=== PATIENT | female | born 1995 | race Caucasian/White ===

== ENCOUNTER 2017-03-13 19:18 | Emergency (ER) | payer BC ==
[2017-03-13] MEDS ORDERED: Azithromycin 250 MG Tab PO ONE (20:52)
[2017-03-13] MEDS ORDERED: Codeine/Promethazine 10-6.25 MG/5 ML Syrup 5 ML UD Cup PO ONE (20:53)
[2017-03-13 20:55] VITALS: BP 131/96
--- NOTE | 2017-03-13 20:55 | EDM.PDOC ---
ED HPI GENERAL MEDICAL PROBLEM - General Chief Complaint: ENT Problem Stated Complaint: COUGHING UP GREEN PHLEGM, THROAT HAS WHITE SPOTS, Time Seen by Provider: 03/13/17 20:50 Source of Information: Reports: Patient History Limitations: Reports: No Limitations - History of Present Illness INITIAL COMMENTS - FREE TEXT/NARRATIVE: been sick since Thursday got worse today. Throat Pain Score (Numeric/FACES): 7 - Related Data Allergies Allergy/AdvReac Type Severity Reaction Status Date / Time amoxicillin [Amoxicillin] Allergy Rash Verified 03/11/14 17:37 cephalexin monohydrate Allergy Vomiting Verified 03/11/14 17:37 [From Keflex] ibuprofen [From Motrin] Allergy Nausea and Verified 03/13/17 20:08 Vomiting Penicillins Allergy Rash Verified 03/11/14 17:37 Home Meds: Home Meds Albuterol [Proair HFA] 2 puff INH Q4HR PRN 03/11/14 [History] Desogestrel-Ethinyl Estradiol [Juleber 28 Day Tablet] 03/13/17 [History] Nasal [place] Otc 03/13/17 [History] Past Medical History Cardiovascular History: Reports: None Respiratory History: Reports: Asthma Gastrointestinal History: Reports: None Genitourinary History: Reports: None 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 Musculoskeletal History: Reports: None Neurological History: Reports: None Psychiatric History: Reports: None Endocrine/Metabolic History: Reports: None Hematologic History: Reports: None Immunologic History: Reports: None Oncologic (Cancer) History: Reports: None Dermatologic History: Reports: None - Infectious Disease History Infectious Disease History: Reports: None - Past Surgical History Head Surgeries/Procedures: Reports: None HEENT Surgical History: Reports: None Cardiovascular Surgical History: Reports: None GI Surgical History: Reports: None Female Surgical History: Reports: None Musculoskeletal Surgical History: Reports: None Social & Family History - Tobacco Use Smoking Status *Q: Never Smoker Second Hand Smoke Exposure: No - Alcohol Use Days Per Week of Alcohol Use: 0 - Recreational Drug Use Recreational Drug Use: No ED ROS ENT - Review of Systems Review Of Systems: ROS reveals no pertinent complaints other than HPI. ED EXAM, ENT - Physical Exam Exam: See Below Exam Limited By: No Limitations General Appearance: Alert, WD/WN, Mild Distress, Other (cough spasm) Ears: Hearing Grossly Normal, TM Dullness Nose: Nasal Swelling Mouth/Throat: Pharyngeal Erythema, Tonsillar Erythema, Tonsillar Exudates, Tonsillar Swelling Head: Atraumatic Neck: Non-Tender, Full Range of Motion, Lymphadenopathy (L), Lymphadenopathy (R) Respiratory/Chest: No Respiratory Distress, No Accessory Muscle Use, Rhonchi. No: Decreased Breath Sounds Cardiovascular: Regular Rate, Rhythm GI/Abdominal: Soft, Non-Tender Neurological: Alert, Oriented, Normal Cognition, Normal Gait, No Motor/Sensory Deficits Psychiatric: Normal Affect, Normal Mood Skin: Warm, Dry, Normal Color Lymphatic: No Adenopathy Course - Orders/Labs/Meds Orders: Active Orders 24 hr Category Date Time Status CULTURE STREP A CONFIRMATION [RM] Stat Lab 03/13/17 20:01 Results STREP SCRN A RAPID W CULT CONF [] Stat Lab 03/13/17 20:01 Results - Re-Assessments/Exams Free Text/Narrative Re-Assessment/Exam: 03/13/17 20:52 results discussed with pt. Departure - Departure Time of Disposition: 20:52 Disposition: Home, Self-Care 01 Condition: Good Clinical Impression: Tonsillitis, Bronchitis Sinusitis Qualifiers: Sinusitis location: frontal Chronicity: acute Recurrence: recurrent Qualified Code(s): J01.11 - Acute recurrent frontal sinusitis - Discharge Information Instructions: Sinusitis, Adult, [id number] Additional Instructions: 1) rest as much as possible 2) don't sleep flat at night 3) drink lots of liquids 4) follow up at clinic or recheck as needed rx given; z-veda medrol dospak phenergan codeine syrup qid prn x 4oz - My Orders Last 24 Hours: My Active Orders 03/13/17 20:01 CULTURE STREP A CONFIRMATION [RM] Stat STREP SCRN A RAPID W CULT CONF [] Stat - Assessment/Plan Last 24 Hours: My Active Orders 03/13/17 20:01 CULTURE STREP A CONFIRMATION [RM] Stat STREP SCRN A RAPID W CULT CONF [] Stat
== END 2017-03-13 21:03 | disposition home or self-care (01) ==
LOC: DL.ED 19:18
DX: J03.90 Acute tonsillitis, unspecified (principal); J40 Bronchitis, not specified as acute or chronic; J01.11 Acute recurrent frontal sinusitis; Z88.1 Allergy status to other antibiotic agents; Z88.0 Allergy status to penicillin
CPT/HCPCS: 87081; 87430; 99282; A9270

== ENCOUNTER 2020-02-19 02:49 | Emergency (ER) | payer BC ==
[2020-02-19 02:56] VITALS: BP 140/88; PULSE 100
[2020-02-19] MEDS ORDERED: Promethazine 25 MG/ML SDV IM ONE (03:11)
[2020-02-19] MEDS ORDERED: Butorphanol 2 MG/ML SDV IM ONE (03:11)
--- NOTE | 2020-02-19 03:16 | EDM.PDOC ---
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 present episode since yesterday and did have neck adjustment but now not working. been nauseous also. 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 Right Temporal Headache Pain Score (Numeric/FACES): 7 - Related Data Allergies Allergy/AdvReac Type Severity Reaction Status Date / Time amoxicillin [Amoxicillin] Allergy Rash Verified 02/19/20 02:52 doxycycline Allergy Swollen Verified 02/19/20 03:00 Tongue ibuprofen [From Motrin] Allergy Nausea and Verified 02/19/20 02:52 Vomiting Penicillins Allergy Rash Verified 02/19/20 02:52 Home Meds: Home Meds Albuterol [Proair HFA] 2 puff INH Q4HR PRN 03/11/14 [History] desogestreL-ethinyl estradioL [Juleber 28 Day Tablet] 03/13/17 [History] Past Medical History HEENT History: Reports: None Cardiovascular History: Reports: None Respiratory History: Reports: Asthma Gastrointestinal History: Reports: None Genitourinary History: Reports: None 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 Musculoskeletal History: Reports: None Neurological History: Reports: None Psychiatric History: Reports: None Endocrine/Metabolic History: Reports: None Hematologic History: Reports: None Immunologic History: Reports: None Oncologic (Cancer) History: Reports: None Dermatologic History: Reports: None - Infectious Disease History Infectious Disease History: Reports: None - Past Surgical History Head Surgeries/Procedures: Reports: None HEENT Surgical History: Reports: None Cardiovascular Surgical History: Reports: None GI Surgical History: Reports: None Female Surgical History: Reports: None Musculoskeletal Surgical History: Reports: None Social & Family History - Family History Family Medical History: Noncontributory - Caffeine Use Caffeine Use: Reports: Soda ED ROS GENERAL - Review of Systems Review Of Systems: Comprehensive ROS is negative, except as noted in HPI. - Physical Exam Exam: See Below Exam Limited By: No Limitations General Appearance: Alert, WD/WN, Mild Distress, Moderate Distress, Other (headache) Eye Exam: Bilateral Eye: PERRL (pupils ER @ 5mm) Ears: Hearing Grossly Normal Throat/Mouth: Normal Voice, No Airway Compromise Head Exam: Atraumatic Neck: Non-Tender, Full Range of Motion Respiratory/Chest: No Respiratory Distress Cardiovascular: Regular Rate, Rhythm GI/Abdominal: Soft, Non-Tender (Female) Exam: Deferred Rectal (Female) Exam: Deferred Neuro Exam (Abbreviated): Alert, Oriented, Normal Cognition, Normal Gait, No Motor/Sensory Deficits Psychiatric: Flat Affect, Tearful Skin Exam: Warm, Dry, Normal Color Course - Vital Signs Last Recorded V/S: Last Vital Signs Temp 36.4 C 02/19/20 02:55 Pulse 100 02/19/20 02:55 Resp 16 02/19/20 02:55 BP 140/88 02/19/20 02:55 Pulse Ox 97 02/19/20 02:55 - Orders/Labs/Meds Orders: Active Orders 24 hr Category Date Time Status Butorphanol [Stadol] Med 02/19/20 03:11 Once 2 mg IM ONETIME ONE Promethazine [Phenergan] Med 02/19/20 03:11 Once 25 mg IM ONETIME ONE Departure - Departure Time of Disposition: 03:14 Disposition: Home, Self-Care 01 Condition: Good Clinical Impression: Headache around the eyes - Discharge Information Additional Instructions: 1) rest 2) avoid bright light and loud noises 3) follow up at clinic Sepsis Event Note (ED) - Evaluation Sepsis Screening Result: No Definite Risk - Focused Exam Vital Signs: Vital Signs Temp Pulse Resp BP Pulse Ox 02/19/20 02:55 36.4 C 100 16 140/88 97 - My Orders Last 24 Hours: My Active Orders 02/19/20 03:11 Butorphanol [Stadol] 2 mg IM ONETIME ONE Promethazine [Phenergan] 25 mg IM ONETIME ONE - Assessment/Plan Last 24 Hours: My Active Orders 02/19/20 03:11 Butorphanol [Stadol] 2 mg IM ONETIME ONE Promethazine [Phenergan] 25 mg IM ONETIME ONE
== END 2020-02-19 03:30 | disposition home or self-care (01) ==
LOC: DL.ED 02:49
DX: R51 Headache (principal); J45.909 Unspecified asthma, uncomplicated; Z88.0 Allergy status to penicillin; Z88.1 Allergy status to other antibiotic agents; Z88.6 Allergy status to analgesic agent
CPT/HCPCS: 96372; 99283; J0595; J2550

== ENCOUNTER 2020-03-29 11:03 | Emergency (ER) | payer BC ==
[2020-03-29 11:33] VITALS: BP 114/75; PULSE 77
[2020-03-29] MEDS ORDERED: Promethazine 25 MG/ML SDV IM ONE (11:35)
[2020-03-29] MEDS ORDERED: Butorphanol 2 MG/ML SDV IM ONE (11:35)
--- NOTE | 2020-03-29 12:00 | EDM.PDOC ---
ED HPI GENERAL MEDICAL PROBLEM - General Chief Complaint: Headache Stated Complaint: MIGRAINE SEVERE PAIN/NAUSEOUS Time Seen by Provider: 03/29/20 11:25 Source of Information: Reports: Patient, RN, RN Notes Reviewed History Limitations: Reports: No Limitations - History of Present Illness INITIAL COMMENTS - FREE TEXT/NARRATIVE: Amarilis presents to the ED via personal vehicle with complaints of migraine. Per her report, this migraine began abruptly at 0300 today (03/29/20) and has progressively worsened since that time. She relates the pain is localized to her right eye and is sharp in nature. She attests to sensitivity to light and sound. She denies nausea and vomiting. The patient reports she has a history of migraines for which she doctors with Dr. Inman. She was started on Propranolol 80mg daily about one month ago and has been migraine free since initiating the medication. She has not taken any medications for this acute migraine. - Related Data Allergies Allergy/AdvReac Type Severity Reaction Status Date / Time amoxicillin [Amoxicillin] Allergy Rash Verified 03/29/20 11:14 doxycycline Allergy Swollen Verified 03/29/20 11:14 Tongue ibuprofen [From Motrin] Allergy Nausea and Verified 03/29/20 11:14 Vomiting Penicillins Allergy Rash Verified 03/29/20 11:14 Home Meds: Home Meds Albuterol [Proair HFA] 2 puff INH Q4HR PRN 03/11/14 [History] desogestreL-ethinyl estradioL [Juleber 28 Day Tablet] 1 tab PO DAILY 03/13/17 [History] Citalopram Hydrobromide [Celexa] 10 mg PO DAILY 03/29/20 [History] Citalopram Hydrobromide [Celexa] 20 mg PO DAILY 03/29/20 [History] Fluticasone Propionate 2 puff INH ASDIRECTED PRN 03/29/20 [History] Propranolol HCl [Propranolol] 60 mg PO BEDTIME 03/29/20 [History] Past Medical History HEENT History: Reports: None Cardiovascular History: Reports: None Respiratory History: Reports: Asthma Gastrointestinal History: Reports: None Genitourinary History: Reports: None 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 Musculoskeletal History: Reports: None Neurological History: Reports: Migraines Other Neuro History: states migraines revolve around her monthly cycle Psychiatric History: Reports: Anxiety, Depression Endocrine/Metabolic History: Reports: None Hematologic History: Reports: None Immunologic History: Reports: None Oncologic (Cancer) History: Reports: None Dermatologic History: Reports: None - Infectious Disease History Infectious Disease History: Reports: None - Past Surgical History Head Surgeries/Procedures: Reports: None HEENT Surgical History: Reports: None Cardiovascular Surgical History: Reports: None GI Surgical History: Reports: None Female Surgical History: Reports: None Musculoskeletal Surgical History: Reports: None Social & Family History - Family History Family Medical History: Noncontributory - Tobacco Use Tobacco Use Status *Q: Never Tobacco User - Caffeine Use Caffeine Use: Reports: Coffee - Recreational Drug Use Recreational Drug Use: No ED ROS GENERAL - Review of Systems Review Of Systems: Comprehensive ROS is negative, except as noted in HPI. - Physical Exam Exam: See Below Exam Limited By: No Limitations General Appearance: Alert, WD/WN, No Apparent Distress Eye Exam: Bilateral Eye: EOMI, Normal Inspection, PERRL Throat/Mouth: Normal Voice, No Airway Compromise Head Exam: Atraumatic, Normocephalic Neck: Normal Inspection, Supple, Non-Tender, Full Range of Motion Respiratory/Chest: No Respiratory Distress, Lungs Clear, Normal Breath Sounds, No Accessory Muscle Use, Chest Non-Tender Cardiovascular: Normal Peripheral Pulses, Regular Rate, Rhythm, No Edema, No Gallop, No Murmur, No Rub Neuro Exam (Abbreviated): Alert, Oriented, CN II-XII Intact, Normal Cognition, Normal Gait, No Motor/Sensory Deficits Extremities: Normal Inspection, Normal Range of Motion Skin Exam: Warm, Dry, Intact, Normal Color, No Rash. No: Ecchymosis, Erythema, Mottled, Pallor, Petechiae, Rash Course - Vital Signs Last Recorded V/S: Last Vital Signs Temp 98.3 F 03/29/20 11:15 Pulse 77 03/29/20 11:15 Resp 16 03/29/20 11:15 BP 114/75 03/29/20 11:15 Pulse Ox 99 03/29/20 11:15 - Orders/Labs/Meds Meds: Medications Discontinued Medications Generic Name Dose Route Start Last Admin Trade Name Freq PRN Reason Stop Dose Admin Butorphanol Tartrate 2 mg 03/29/20 11:35 03/29/20 11:46 Stadol IM 03/29/20 11:36 2 mg ONETIME ONE Administration Promethazine HCl 25 mg 03/29/20 11:35 03/29/20 11:47 Phenergan IM 03/29/20 11:36 25 mg ONETIME ONE Administration - Re-Assessments/Exams Free Text/Narrative Re-Assessment/Exam: 03/29/20 Patient states improvement following Phenergan and Stadol. Will discharge home with instructions to follow up with PCP to discuss ongoing migraine management with possible Neuro consultation. Departure - Departure Time of Disposition: 12:11 Disposition: Home, Self-Care 01 Condition: Good Clinical Impression: Migraine - Discharge Information *PRESCRIPTION DRUG MONITORING PROGRAM REVIEWED*: Not Applicable *COPY OF PRESCRIPTION DRUG MONITORING REPORT IN PATIENT AYDEN: Not Applicable Instructions: Migraine Headache, [id number], Dehydration, Adult, [id number] Forms: ED Department Discharge Additional Instructions: Drink plenty of fluids to stay hydrated. Follow up with primary care provider to discuss ongoing treatment of migraines Sepsis Event Note (ED) - Evaluation Sepsis Screening Result: No Definite Risk - Focused Exam Vital Signs: Vital Signs Temp Pulse Resp BP Pulse Ox 03/29/20 11:15 98.3 F 77 16 114/75 99
== END 2020-03-29 12:22 | disposition home or self-care (01) ==
LOC: DL.ED 11:03
DX: G43.909 Migraine, unspecified, not intractable, without status migrainosus (principal); F41.9 Anxiety disorder, unspecified; F32.9 Major depressive disorder, single episode, unspecified; Z88.1 Allergy status to other antibiotic agents; Z88.6 Allergy status to analgesic agent; Z88.0 Allergy status to penicillin
CPT/HCPCS: 96372; 99283; J0595; J2550

== ENCOUNTER 2020-04-11 05:58 | Emergency (ER) | payer BC ==
[2020-04-11] MEDS ORDERED: Promethazine 25 MG/ML SDV IM ONE (06:09)
[2020-04-11] MEDS ORDERED: Butorphanol 2 MG/ML SDV IM ONE (06:09)
[2020-04-11 06:10] VITALS: BP 123/81; PULSE 82
--- NOTE | 2020-04-11 06:24 | EDM.PDOC ---
ED HPI GENERAL MEDICAL PROBLEM - General Chief Complaint: Headache Stated Complaint: MIGRAINE Time Seen by Provider: 04/11/20 06:10 Source of Information: Reports: Patient History Limitations: Reports: No Limitations - History of Present Illness INITIAL COMMENTS - FREE TEXT/NARRATIVE: ED with c/o recurrent migraine. Reports monthly migraines with menses. Has tried multiple medications with little benefit. Most recent Propranolol. Nause, light sensitive, H/A starts right side of neck radiating forward. Similar to previous. Headache Pain Score (Numeric/FACES): 6 - Related Data Allergies Allergy/AdvReac Type Severity Reaction Status Date / Time amoxicillin [Amoxicillin] Allergy Rash Verified 04/11/20 06:10 doxycycline Allergy Swollen Verified 04/11/20 06:10 Tongue ibuprofen [From Motrin] Allergy Nausea and Verified 04/11/20 06:10 Vomiting Penicillins Allergy Rash Verified 04/11/20 06:10 Home Meds: Home Meds Albuterol [Proair HFA] 2 puff INH Q4HR PRN 03/11/14 [History] desogestreL-ethinyl estradioL [Juleber 28 Day Tablet] 1 tab PO DAILY 03/13/17 [History] Citalopram Hydrobromide [Celexa] 10 mg PO DAILY 03/29/20 [History] Citalopram Hydrobromide [Celexa] 20 mg PO DAILY 03/29/20 [History] Fluticasone Propionate 2 puff INH ASDIRECTED PRN 03/29/20 [History] Propranolol HCl [Propranolol] 60 mg PO BEDTIME 03/29/20 [History] Past Medical History HEENT History: Reports: None Cardiovascular History: Reports: None Respiratory History: Reports: Asthma Gastrointestinal History: Reports: None Genitourinary History: Reports: None 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 Musculoskeletal History: Reports: None Neurological History: Reports: Migraines Other Neuro History: states migraines revolve around her monthly cycle Psychiatric History: Reports: Anxiety, Depression Endocrine/Metabolic History: Reports: None Hematologic History: Reports: None Immunologic History: Reports: None Oncologic (Cancer) History: Reports: None Dermatologic History: Reports: None - Infectious Disease History Infectious Disease History: Reports: None - Past Surgical History Head Surgeries/Procedures: Reports: None HEENT Surgical History: Reports: Myringotomy w Tube(s) Cardiovascular Surgical History: Reports: None GI Surgical History: Reports: None Female Surgical History: Reports: None Musculoskeletal Surgical History: Reports: None Social & Family History - Family History Family Medical History: No Pertinent Family History - Tobacco Use Tobacco Use Status *Q: Never Tobacco User Second Hand Smoke Exposure: No - Caffeine Use Caffeine Use: Reports: None - Recreational Drug Use Recreational Drug Use: No ED ROS GENERAL - Review of Systems Review Of Systems: Comprehensive ROS is negative, except as noted in HPI. - Physical Exam Exam: See Below Exam Limited By: No Limitations General Appearance: Alert, No Apparent Distress Eye Exam: Bilateral Eye: EOMI, PERRL Ears: Normal External Exam Nose: Normal Inspection Throat/Mouth: Normal Inspection Head Exam: Atraumatic, Normocephalic Neck: Normal Inspection, Supple, Full Range of Motion Respiratory/Chest: No Respiratory Distress, Lungs Clear, Normal Breath Sounds Cardiovascular: Regular Rate, Rhythm GI/Abdominal: Normal Bowel Sounds, Soft Neuro Exam (Abbreviated): Alert, Oriented, Normal Cognition Back Exam: Normal Inspection Psychiatric: Normal Affect, Normal Mood Skin Exam: Warm, Dry, Intact, Normal Color Course - Vital Signs Last Recorded V/S: Last Vital Signs Temp 96.4 F L 04/11/20 06:06 Pulse 82 04/11/20 06:06 Resp 18 04/11/20 06:06 BP 123/81 04/11/20 06:06 Pulse Ox 99 04/11/20 06:06 - Orders/Labs/Meds Meds: Medications Discontinued Medications Generic Name Dose Route Start Last Admin Trade Name Rolandoq PRN Reason Stop Dose Admin Butorphanol Tartrate 2 mg 04/11/20 06:09 04/11/20 06:21 Stadol IM 04/11/20 06:10 2 mg ONETIME ONE Administration Promethazine HCl 25 mg 04/11/20 06:09 04/11/20 06:21 Phenergan IM 04/11/20 06:10 25 mg ONETIME ONE Administration Departure - Departure Time of Disposition: 06:21 Disposition: Home, Self-Care 01 Condition: Good Clinical Impression: Migraine - Discharge Information *PRESCRIPTION DRUG MONITORING PROGRAM REVIEWED*: No *COPY OF PRESCRIPTION DRUG MONITORING REPORT IN PATIENT AYDEN: No Instructions: Recurrent Migraine Headache Forms: ED Department Discharge Additional Instructions: rest increase fluids follow up with primary care provider Sepsis Event Note (ED) - Evaluation Sepsis Screening Result: No Definite Risk
== END 2020-04-11 06:46 | disposition home or self-care (01) ==
LOC: DL.ED 05:58
DX: G43.909 Migraine, unspecified, not intractable, without status migrainosus (principal); F41.9 Anxiety disorder, unspecified; F32.9 Major depressive disorder, single episode, unspecified; Z79.899 Other long term (current) drug therapy; Z88.1 Allergy status to other antibiotic agents; Z88.6 Allergy status to analgesic agent; Z88.0 Allergy status to penicillin; J45.909 Unspecified asthma, uncomplicated
CPT/HCPCS: 96372; 99283; 99283-25; J0595; J2550

== ENCOUNTER 2020-05-26 02:20 | Emergency (ER) | payer BC, OTHER ==
[2020-05-26 02:43] VITALS: BP 130/82; PULSE 87
[2020-05-26] MEDS ORDERED: Butorphanol 2 MG/ML SDV IM ONE (02:46)
[2020-05-26] MEDS ORDERED: Promethazine 25 MG/ML SDV IM ONE (02:46)
--- NOTE | 2020-05-26 02:48 | EDM.PDOC ---
ED HPI GENERAL MEDICAL PROBLEM - General Chief Complaint: Headache Stated Complaint: MIGRAINE Time Seen by Provider: 05/26/20 02:47 Source of Information: Reports: Patient History Limitations: Reports: No Limitations - History of Present Illness INITIAL COMMENTS - FREE TEXT/NARRATIVE: recurrent h/o migraines. Headache Pain Score (Numeric/FACES): 5 - Related Data Allergies Allergy/AdvReac Type Severity Reaction Status Date / Time amoxicillin [Amoxicillin] Allergy Rash Verified 04/11/20 06:10 doxycycline Allergy Swollen Verified 04/11/20 06:10 Tongue ibuprofen [From Motrin] Allergy Nausea and Verified 04/11/20 06:10 Vomiting Penicillins Allergy Rash Verified 04/11/20 06:10 sumatriptan [From Imitrex] Allergy Other Verified 05/26/20 02:43 Home Meds: Home Meds Albuterol [Proair HFA] 2 puff INH Q4HR PRN 03/11/14 [History] desogestreL-ethinyl estradioL [Juleber 28 Day Tablet] 1 tab PO DAILY 03/13/17 [History] Citalopram Hydrobromide [Celexa] 10 mg PO DAILY 03/29/20 [History] Citalopram Hydrobromide [Celexa] 20 mg PO DAILY 03/29/20 [History] Fluticasone Propionate 2 puff INH ASDIRECTED PRN 03/29/20 [History] Propranolol HCl [Propranolol] 60 mg PO BEDTIME 03/29/20 [History] Topiramate [Topamax] 25 mg PO BEDTIME 05/26/20 [History] Past Medical History HEENT History: Reports: None Cardiovascular History: Reports: None Respiratory History: Reports: Asthma Gastrointestinal History: Reports: None Genitourinary History: Reports: 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 Musculoskeletal History: Reports: None Neurological History: Reports: Migraines Other Neuro History: states migraines revolve around her monthly cycle Psychiatric History: Reports: Anxiety, Depression Endocrine/Metabolic History: Reports: None Hematologic History: Reports: None Immunologic History: Reports: None Oncologic (Cancer) History: Reports: None Dermatologic History: Reports: None - Infectious Disease History Infectious Disease History: Reports: None - Past Surgical History Head Surgeries/Procedures: Reports: None HEENT Surgical History: Reports: Myringotomy w Tube(s) Cardiovascular Surgical History: Reports: None GI Surgical History: Reports: None Female Surgical History: Reports: None Musculoskeletal Surgical History: Reports: None Social & Family History - Family History Family Medical History: No Pertinent Family History - Caffeine Use Caffeine Use: Reports: None ED ROS GENERAL - Review of Systems Review Of Systems: Comprehensive ROS is negative, except as noted in HPI. - Physical Exam Exam: See Below Exam Limited By: No Limitations General Appearance: Alert, WD/WN, Mild Distress, Moderate Distress, Other (tearful) Eye Exam: Bilateral Eye: PERRL (pupils ER @ 4mm with photophobia) Ears: Hearing Grossly Normal Throat/Mouth: Normal Voice, No Airway Compromise Head Exam: Atraumatic Neck: Non-Tender, Full Range of Motion Respiratory/Chest: No Respiratory Distress Cardiovascular: Regular Rate, Rhythm GI/Abdominal: Soft, Non-Tender (Female) Exam: Deferred Rectal (Female) Exam: Deferred Neuro Exam (Abbreviated): Alert, Oriented, Normal Cognition, Normal Gait, No Motor/Sensory Deficits Psychiatric: Tearful Skin Exam: Warm, Dry, Normal Color Course - Vital Signs Last Recorded V/S: Last Vital Signs Temp 36.1 C 05/26/20 02:39 Pulse 87 05/26/20 02:39 Resp 18 05/26/20 02:39 BP 130/82 05/26/20 02:39 Pulse Ox 98 05/26/20 02:39 - Orders/Labs/Meds Meds: Medications Discontinued Medications Generic Name Dose Route Start Last Admin Trade Name Freq PRN Reason Stop Dose Admin Butorphanol Tartrate 2 mg 05/26/20 02:46 05/26/20 02:56 Stadol IM 05/26/20 02:47 2 mg ONETIME ONE Administration Promethazine HCl 25 mg 05/26/20 02:46 05/26/20 02:55 Phenergan IM 05/26/20 02:47 25 mg ONETIME ONE Administration Departure - Departure Time of Disposition: 03:10 Disposition: Home, Self-Care 01 Condition: Good Clinical Impression: Migraine - Discharge Information Instructions: Migraine Headache, [id number] Forms: ED Department Discharge Additional Instructions: 1) rest 2) avoid bright lights and loud noise 3) follow up at clinic Sepsis Event Note (ED) - Evaluation Sepsis Screening Result: No Definite Risk - Focused Exam Vital Signs: Vital Signs Temp Pulse Resp BP Pulse Ox 05/26/20 02:39 36.1 C 87 18 130/82 98
== END 2020-05-26 03:10 | disposition home or self-care (01) ==
LOC: DL.ED 02:20
DX: G43.909 Migraine, unspecified, not intractable, without status migrainosus (principal); F41.9 Anxiety disorder, unspecified; F32.9 Major depressive disorder, single episode, unspecified; J45.909 Unspecified asthma, uncomplicated; Z79.899 Other long term (current) drug therapy; Z88.1 Allergy status to other antibiotic agents; Z88.6 Allergy status to analgesic agent; Z88.0 Allergy status to penicillin
CPT/HCPCS: 96372; 99283; J0595; J2550

== ENCOUNTER 2021-01-17 22:20 | Emergency (ER) | payer BC, OTHER ==
[2021-01-17] MEDS ORDERED: Metoclopramide 10 MG/2 ML SDV IM ONE (22:53)
[2021-01-17] MEDS ORDERED: diphenhydrAMINE 50 MG/ML SDV IM ONE (22:53)
[2021-01-17 22:58] VITALS: BP 125/91; PULSE 86
--- NOTE | 2021-01-17 23:00 | EDM.PDOC ---
ED HPI GENERAL MEDICAL PROBLEM - General Chief Complaint: Headache Stated Complaint: MIGRAINE Time Seen by Provider: 01/17/21 22:58 Source of Information: Reports: Patient History Limitations: Reports: No Limitations - History of Present Illness INITIAL COMMENTS - FREE TEXT/NARRATIVE: Patient is an unfortunate 25-year-old female who presents emerged part today with complaint of headache. The patient reports that she has a right- sided headache which she describes a sharp stabbing type headache which is "similar to previous migraines". The patient reports she has had nausea no vomiting she reports photo and phonophobia she reports that she took her rescue medication at home with no improvement in symptoms this concerned the patient so she presents emerged department today for further evaluation she has had no fever no chills no nuchal rigidity Headache Pain Score (Numeric/FACES): 7 - Related Data Allergies Allergy/AdvReac Type Severity Reaction Status Date / Time amoxicillin [Amoxicillin] Allergy Rash Verified 04/11/20 06:10 buspirone Allergy Other Verified 01/17/21 23:00 citalopram Allergy Other Verified 01/17/21 23:00 doxycycline Allergy Swollen Verified 04/11/20 06:10 Tongue gadobutrol Allergy Hives Verified 01/17/21 23:00 ibuprofen [From Motrin] Allergy Nausea and Verified 04/11/20 06:10 Vomiting Penicillins Allergy Rash Verified 04/11/20 06:10 sulfamethoxazole Allergy Anaphylactic Verified 01/17/21 23:00 [From Shock Sulfamethoxazole-Trimethoprim] sumatriptan [From Imitrex] Allergy Other Verified 05/26/20 02:43 trimethoprim Allergy Anaphylactic Verified 01/17/21 23:00 [From Shock Sulfamethoxazole-Trimethoprim] Home Meds: Home Meds Albuterol [Proair HFA] 2 puff INH Q4HR PRN 03/11/14 [History] desogestreL-ethinyl estradioL [Juleber 28 Day Tablet] 1 tab PO DAILY 03/13/17 [History] Citalopram Hydrobromide [Celexa] 10 mg PO DAILY 03/29/20 [History] Citalopram Hydrobromide [Celexa] 20 mg PO DAILY 03/29/20 [History] Fluticasone Propionate 2 puff INH ASDIRECTED PRN 03/29/20 [History] Propranolol HCl [Propranolol] 60 mg PO BEDTIME 10/29/20 [History] Topiramate [Topamax] 25 mg PO BEDTIME 05/26/20 [History] Past Medical History HEENT History: Reports: None Cardiovascular History: Reports: None Respiratory History: Reports: Asthma Gastrointestinal History: Reports: None Genitourinary History: Reports: None 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 Musculoskeletal History: Reports: None Neurological History: Reports: Migraines Other Neuro History: states migraines revolve around her monthly cycle Psychiatric History: Reports: Anxiety, Depression Endocrine/Metabolic History: Reports: None Hematologic History: Reports: None Immunologic History: Reports: None Oncologic (Cancer) History: Reports: None Dermatologic History: Reports: None - Infectious Disease History Infectious Disease History: Reports: None - Past Surgical History Head Surgeries/Procedures: Reports: None HEENT Surgical History: Reports: Myringotomy w Tube(s) Cardiovascular Surgical History: Reports: None GI Surgical History: Reports: None Female Surgical History: Reports: None Musculoskeletal Surgical History: Reports: None Social & Family History - Family History Family Medical History: No Pertinent Family History - Caffeine Use Caffeine Use: Reports: None ED ROS GENERAL - Review of Systems Review Of Systems: See Below Constitutional: Denies: Fever, Chills GI/Abdominal: Reports: Nausea Neurological: Reports: Headache - Physical Exam Exam: See Below Exam Limited By: No Limitations General Appearance: Alert, WD/WN, Mild Distress Eye Exam: Bilateral Eye: PERRL Head Exam: Atraumatic, Normocephalic Neck: Normal Inspection, Supple, Non-Tender, Full Range of Motion Respiratory/Chest: No Respiratory Distress, Lungs Clear, Normal Breath Sounds, No Accessory Muscle Use, Chest Non-Tender Cardiovascular: Normal Peripheral Pulses, Regular Rate, Rhythm, No Edema, No Gallop, No JVD, No Murmur, No Rub GI/Abdominal: Normal Bowel Sounds, Soft, Non-Tender, No Organomegaly, No Distention, No Abnormal Bruit, No Mass Neuro Exam (Abbreviated): Alert, Oriented, CN II-XII Intact, Normal Cognition, Normal Gait, Normal Reflexes, No Motor/Sensory Deficits Back Exam: Normal Inspection, Full Range of Motion, NT Extremities: Normal Inspection, Normal Range of Motion, Non-Tender, No Pedal Edema, Normal Capillary Refill Skin Exam: Warm, Dry, Intact, Normal Color, No Rash Course - Vital Signs Text/Narrative:: Headache has resolved, will discharge patient home outpatient follow-up outpatient with PCP or return to the emergency department for any worsening con dition Last Recorded V/S: Last Vital Signs Temp 97.3 F 01/17/21 22:56 Pulse 86 01/17/21 22:56 Resp 18 01/17/21 22:56 BP 125/91 H 01/17/21 22:56 Pulse Ox 99 01/17/21 22:56 - Orders/Labs/Meds Meds: Medications Discontinued Medications Generic Name Dose Route Start Last Admin Trade Name Yohana PRN Reason Stop Dose Admin Diphenhydramine HCl 50 mg 01/17/21 22:53 01/17/21 23:05 Diphenhydramine 50 Mg/Ml Sdv IM 01/17/21 22:54 50 mg ONETIME ONE Administration Metoclopramide HCl 10 mg 01/17/21 22:53 01/17/21 23:03 Metoclopramide 10 Mg/2 Ml Sdv IM 01/17/21 22:54 10 mg ONETIME ONE Administration Departure - Departure Time of Disposition: 23:40 Disposition: Home, Self-Care 01 Condition: Good Clinical Impression: Migraine - Discharge Information *PRESCRIPTION DRUG MONITORING PROGRAM REVIEWED*: No *COPY OF PRESCRIPTION DRUG MONITORING REPORT IN PATIENT AYDEN: No Instructions: Migraine Headache, [id number] Referrals: Thi Inman MD [Physician] - Forms: ED Department Discharge Additional Instructions: Home, rest in a dark quiet room, avoid bright lights, return as needed for worsening condition Sepsis Event Note (ED) - Evaluation Sepsis Screening Result: No Definite Risk - Focused Exam Vital Signs: Vital Signs Temp Pulse Resp BP Pulse Ox 01/17/21 22:56 97.3 F 86 18 125/91 H 99
== END 2021-01-17 23:49 | disposition home or self-care (01) ==
LOC: DL.ED 22:20
DX: G43.909 Migraine, unspecified, not intractable, without status migrainosus (principal); Z88.1 Allergy status to other antibiotic agents; Z88.8 Allergy status to other drugs, medicaments and biological substances; Z88.0 Allergy status to penicillin; Z88.2 Allergy status to sulfonamides; Z79.899 Other long term (current) drug therapy
CPT/HCPCS: 96372; 99282; 99283; J1200; J2765

== ENCOUNTER 2021-03-29 02:46 | Emergency (ER) | payer BC, OTHER ==
[2021-03-29] MEDS ORDERED: Ketorolac 30 MG/ML SDV IVPUSH ONE (03:01)
[2021-03-29] MEDS ORDERED: Sodium Chloride 0.9% 1,000 ML IV ONE (03:01)
--- NOTE | 2021-03-29 03:05 | EDM.PDOC ---
ED HPI GENERAL MEDICAL PROBLEM - General Chief Complaint: Headache Stated Complaint: MIGRAINE Time Seen by Provider: 03/29/21 02:55 Source of Information: Reports: Patient History Limitations: Reports: No Limitations - History of Present Illness INITIAL COMMENTS - FREE TEXT/NARRATIVE: This 25 yo female patient reports to the ED with a headache over the past 24 hours. The patient reports she took Tylenol and ibuprofen (last dose was 5 hours ago) with little to no symptom relief. The patient reports she gets nauseated when she lyes down. Onset Date: 03/28/21 Duration: Constant Location: Reports: Head Quality: Reports: Ache Severity: Moderate Improves with: Reports: None Worsens with: Reports: None Context: Reports: Other - Related Data Allergies Allergy/AdvReac Type Severity Reaction Status Date / Time amoxicillin [Amoxicillin] Allergy Rash Verified 03/29/21 02:54 buspirone Allergy Other Verified 03/29/21 02:54 citalopram Allergy Other Verified 03/29/21 02:54 doxycycline Allergy Swollen Verified 03/29/21 02:54 Tongue gadobutrol Allergy Hives Verified 03/29/21 02:54 ibuprofen [From Motrin] Allergy Nausea and Verified 03/29/21 02:54 Vomiting Penicillins Allergy Rash Verified 03/29/21 02:54 sulfamethoxazole Allergy Anaphylactic Verified 03/29/21 02:54 [From Shock Sulfamethoxazole-Trimethoprim] sumatriptan [From Imitrex] Allergy Other Verified 03/29/21 02:54 trimethoprim Allergy Anaphylactic Verified 03/29/21 02:54 [From Shock Sulfamethoxazole-Trimethoprim] Home Meds: Home Meds Albuterol [Proair HFA] 2 puff INH Q4HR PRN 03/11/14 [History] desogestreL-ethinyl estradioL [Juleber 28 Day Tablet] 1 tab PO DAILY 03/13/17 [History] Fluticasone Propionate 2 puff INH ASDIRECTED PRN 03/29/20 [History] Albuterol [Proventil Neb Soln] 2.5 mg INH QID PRN 03/21/21 [History] DULoxetine [Cymbalta] 60 mg PO DAILY 03/21/21 [History] Fluticasone Propionate [Flovent HFA] 1 puff INH BID 03/21/21 [History] Tretinoin/Emollient Base [Tretinoin 0.05% Emollient Crm] 40 gm TP DAILY 03/21/21 [History] Past Medical History HEENT History: Reports: None Cardiovascular History: Reports: None Respiratory History: Reports: Asthma Gastrointestinal History: Reports: None Genitourinary History: Reports: None 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 Musculoskeletal History: Reports: None Neurological History: Reports: Migraines Other Neuro History: states migraines revolve around her monthly cycle Psychiatric History: Reports: Anxiety, Depression Endocrine/Metabolic History: Reports: None Hematologic History: Reports: None Immunologic History: Reports: None Oncologic (Cancer) History: Reports: None Dermatologic History: Reports: None - Infectious Disease History Infectious Disease History: Reports: None, Chicken Pox, Novel Coronavirus - Past Surgical History Head Surgeries/Procedures: Reports: None HEENT Surgical History: Reports: Myringotomy w Tube(s) Cardiovascular Surgical History: Reports: None GI Surgical History: Reports: None Female Surgical History: Reports: None Musculoskeletal Surgical History: Reports: None Social & Family History - Family History Family Medical History: No Pertinent Family History - Caffeine Use Caffeine Use: Reports: Coffee, Energy Drinks, Soda, Tea, Other ED ROS GENERAL - Review of Systems Review Of Systems: Comprehensive ROS is negative, except as noted in HPI. - Physical Exam Exam: See Below Exam Limited By: No Limitations General Appearance: Alert, WD/WN, Moderate Distress Eye Exam: Bilateral Eye: EOMI, Normal Inspection, PERRL Ears: Normal External Exam, Normal Canal, Hearing Grossly Normal, Normal TMs Nose: Normal Inspection, Normal Mucosa, No Blood Throat/Mouth: Normal Inspection, Normal Lips, Normal Teeth, Normal Gums, Normal Oropharynx, Normal Voice, No Airway Compromise Head Exam: Atraumatic, Normocephalic Neck: Normal Inspection, Supple, Non-Tender, Full Range of Motion Respiratory/Chest: No Respiratory Distress, Lungs Clear, Normal Breath Sounds, No Accessory Muscle Use, Chest Non-Tender Cardiovascular: Normal Peripheral Pulses, Regular Rate, Rhythm, No Edema, No Gallop, No JVD, No Murmur, No Rub GI/Abdominal: Normal Bowel Sounds, Soft, Non-Tender, No Organomegaly, No Distention, No Abnormal Bruit, No Mass (Female) Exam: Deferred Rectal (Female) Exam: Deferred Neuro Exam (Abbreviated): Alert, Oriented, CN II-XII Intact, Normal Cognition, Normal Gait, Normal Reflexes, No Motor/Sensory Deficits Back Exam: Normal Inspection, Full Range of Motion, NT Extremities: Normal Inspection, Normal Range of Motion, Non-Tender, No Pedal Edema, Normal Capillary Refill Psychiatric: Normal Affect, Normal Mood Skin Exam: Warm, Dry, Intact, Normal Color, No Rash Course - Vital Signs Last Recorded V/S: Last Vital Signs Temp 97.6 F 03/29/21 02:54 Pulse 101 H 03/29/21 02:54 Resp 18 03/29/21 02:54 BP 145/104 H 03/29/21 02:54 Pulse Ox 99 03/29/21 02:54 - Orders/Labs/Meds Orders: Active Orders 24 hr Category Date Time Status Sodium Chloride 0.9% [Normal Saline] 1,000 ml Med 03/29/21 03:01 Active IV .BOLUS Medication Orders Sodium Chloride (Normal Saline) 1,000 mls @ 999 mls/hr IV .BOLUS ONE Stop: 03/29/21 04:01 Last Admin: 03/29/21 03:12 Dose: 999 mls/hr Documented by: ANEESH Meds: Medications Generic Name Dose Route Start Last Admin Trade Name Freq PRN Reason Stop Dose Admin Sodium Chloride 1,000 mls @ 999 mls/hr 03/29/21 03:01 03/29/21 03:12 Normal Saline IV 03/29/21 04:01 999 mls/hr .BOLUS ONE Administration Discontinued Medications Generic Name Dose Route Start Last Admin Trade Name Freq PRN Reason Stop Dose Admin Ketorolac Tromethamine 30 mg 03/29/21 03:01 03/29/21 03:12 Ketorolac 30 Mg/Ml Sdv IVPUSH 03/29/21 03:02 30 mg ONETIME ONE Administration Departure - Departure Time of Disposition: 03:43 Disposition: Home, Self-Care 01 Condition: Good Clinical Impression: Migraine - Discharge Information *PRESCRIPTION DRUG MONITORING PROGRAM REVIEWED*: Not Applicable *COPY OF PRESCRIPTION DRUG MONITORING REPORT IN PATIENT AYDEN: Not Applicable Instructions: Migraine Headache, [id number] Forms: ED Department Discharge Care Plan Goals: The patient was advised of the examination results during the visit. The patient was given IV fluids and IV Toradol during the visit with symptom improvement. The patient was encouraged to increase her oral fluid intake. If the patient has any additional symptoms or concerns, the patient should either return to the emergency department or visit her primary care facility. Sepsis Event Note (ED) - Focused Exam Vital Signs: Vital Signs Temp Pulse Resp BP Pulse Ox 03/29/21 02:54 97.6 F 101 H 18 145/104 H 99 - My Orders Last 24 Hours: My Active Orders 03/29/21 03:01 Sodium Chloride 0.9% [Normal Saline] 1,000 ml IV .BOLUS - Assessment/Plan Last 24 Hours: My Active Orders 03/29/21 03:01 Sodium Chloride 0.9% [Normal Saline] 1,000 ml IV .BOLUS
[2021-03-29 03:50] VITALS: BP 145/104; PULSE 101
== END 2021-03-29 03:53 | disposition home or self-care (01) ==
LOC: DL.ED 02:46
DX: G43.909 Migraine, unspecified, not intractable, without status migrainosus (principal); J45.909 Unspecified asthma, uncomplicated; Z88.1 Allergy status to other antibiotic agents; Z88.8 Allergy status to other drugs, medicaments and biological substances; Z88.6 Allergy status to analgesic agent; Z88.0 Allergy status to penicillin; Z88.2 Allergy status to sulfonamides; Z79.899 Other long term (current) drug therapy
CPT/HCPCS: 96374; 99283; J1885; J7030

== ENCOUNTER 2021-07-27 15:25 | Emergency (ER) | payer BC, OTHER ==
[2021-07-27] MEDS ORDERED: Ondansetron 4 MG Tab.DIS PO ONE (15:26)
[2021-07-27 15:46] VITALS: BP 136/91; PULSE 127
[2021-07-27] MEDS ORDERED: Ketorolac 30 MG/ML SDV IVPUSH ONE (16:58)
[2021-07-27] MEDS ORDERED: Metoclopramide 10 MG/2 ML SDV IVPUSH ONE (16:58)
[2021-07-27] MEDS ORDERED: diphenhydrAMINE 50 MG/ML SDV IVPUSH ONE (16:58)
[2021-07-27] MEDS ORDERED: Sodium Chloride 0.9% 1,000 ML IV ONE (16:58)
[2021-07-27] MEDS ORDERED: Ondansetron 4 MG Tab.DIS ONE (17:20)
[2021-07-27] MEDS ORDERED: Albuterol/Ipratropium 3.0-0.5 MG/3 ML Neb Soln NEB ONE (17:48)
== END 2021-07-27 18:10 | disposition home or self-care (01) ==
LOC: DL.ED 15:25
DX: G43.909 Migraine, unspecified, not intractable, without status migrainosus (principal); G44.209 Tension-type headache, unspecified, not intractable; Z88.0 Allergy status to penicillin; Z88.1 Allergy status to other antibiotic agents; Z88.8 Allergy status to other drugs, medicaments and biological substances
CPT/HCPCS: 96374; 96375; 99283; A9270; J1200; J1885; J2765; J7030; 99284

== ENCOUNTER 2021-10-16 18:58 | Emergency (ER) | payer BC, OTHER ==
[2021-10-16 19:10] VITALS: BP 147/112; PULSE 104
[2021-10-16] MEDS ORDERED: Ketorolac 30 MG/ML SDV IVPUSH ONE (19:33)
[2021-10-16] MEDS ORDERED: Ondansetron 4 MG/2 ML SDV IVPUSH ONE (19:33)
[2021-10-16] MEDS ORDERED: diphenhydrAMINE 50 MG/ML SDV IVPUSH ONE (19:34)
[2021-10-16] MEDS ORDERED: Sodium Chloride 0.9% 1,000 ML IV ONE (19:34)
== END 2021-10-16 20:36 | disposition home or self-care (01) ==
LOC: DL.ED 18:58
DX: G43.909 Migraine, unspecified, not intractable, without status migrainosus (principal); Z88.0 Allergy status to penicillin; Z88.1 Allergy status to other antibiotic agents; Z88.8 Allergy status to other drugs, medicaments and biological substances
CPT/HCPCS: 96374; 96375; 99283; J1200; J1885; J2405; J7030

== ENCOUNTER 2021-11-01 19:15 | Emergency (ER) | payer BC, OTHER ==
[2021-11-01] MEDS ORDERED: Ketorolac 30 MG/ML SDV IVPUSH ONE (20:56)
[2021-11-01] MEDS ORDERED: Ondansetron 4 MG/2 ML SDV IVPUSH ONE (20:56)
[2021-11-01] MEDS ORDERED: Sodium Chloride 0.9% 1,000 ML IV ONE (20:56)
[2021-11-01 20:58] VITALS: BP 135/104; PULSE 104
[2021-11-01] MEDS ORDERED: diphenhydrAMINE 50 MG/ML SDV IVPUSH ONE (21:02)
== END 2021-11-01 22:03 | disposition home or self-care (01) ==
LOC: DL.ED 19:15
DX: G44.201 Tension-type headache, unspecified, intractable (principal); Z88.0 Allergy status to penicillin; Z88.1 Allergy status to other antibiotic agents; Z88.8 Allergy status to other drugs, medicaments and biological substances; Z86.16 Personal history of COVID-19
CPT/HCPCS: 96374; 96375; 99282; 99283-25; J1200; J1885; J2405; J7030

== ENCOUNTER 2021-12-11 12:55 | Emergency (ER) | payer BC, OTHER | END 2021-12-11 14:00 | disposition left against medical advice (07) | LOC: DL.ED 12:55 | DX: Z53.21 Procedure and treatment not carried out due to patient leaving prior to being seen by health care provider (principal) ==

== ENCOUNTER 2021-12-12 22:33 | Emergency (ER) | payer BC, OTHER ==
[2021-12-12 22:55] VITALS: BP 152/141; PULSE 158
[2021-12-12] MEDS ORDERED: diphenhydrAMINE 50 MG/ML SDV IVPUSH ONE (23:00)
== END 2021-12-13 00:08 | disposition home or self-care (01) ==
LOC: DL.ED 22:33
DX: L50.9 Urticaria, unspecified (principal); J45.909 Unspecified asthma, uncomplicated; Z88.0 Allergy status to penicillin; Z88.8 Allergy status to other drugs, medicaments and biological substances; Z88.2 Allergy status to sulfonamides; Z79.899 Other long term (current) drug therapy; Z86.16 Personal history of COVID-19
CPT/HCPCS: 96374; 99283; J1200

== ENCOUNTER 2022-03-12 07:20 | Emergency (ER) | payer BC, OTHER ==
[2022-03-12] MEDS ORDERED: Ketorolac 30 MG/ML SDV IVPUSH ONE (19:45)
[2022-03-12] MEDS ORDERED: diphenhydrAMINE 50 MG/ML SDV IVPUSH ONE (19:45)
[2022-03-12] MEDS ORDERED: Ondansetron 4 MG/2 ML SDV IVPUSH ONE (19:45)
== END 2022-03-12 20:45 | disposition home or self-care (01) ==
LOC: DL.ED 07:20
DX: G43.909 Migraine, unspecified, not intractable, without status migrainosus (principal)
CPT/HCPCS: 96374; 96375; 99283-25; J1200; J1885; J2405

== ENCOUNTER 2022-05-18 16:18 | Emergency (ER) | payer BC, OTHER ==
[2022-05-18 17:22] VITALS: BP 149/128; PULSE 116
[2022-05-18] MEDS: Ketorolac 30 MG/ML SDV IVPUSH ONE (18:39)
[2022-05-18] MEDS: Sodium Chloride 0.9% 1,000 ML IV ONE (18:39)
[2022-05-18] MEDS: Ondansetron 4 MG/2 ML SDV IVPUSH ONE (18:40)
== END 2022-05-18 19:45 | disposition home or self-care (01) ==
LOC: DL.ED 16:18
DX: G43.919 Migraine, unspecified, intractable, without status migrainosus (principal); Z88.0 Allergy status to penicillin; Z88.1 Allergy status to other antibiotic agents; Z88.6 Allergy status to analgesic agent; Z88.2 Allergy status to sulfonamides; Z79.899 Other long term (current) drug therapy
CPT/HCPCS: 96361; 96374; 96375; 99283; J1885; J2405; J7030

== ENCOUNTER 2022-06-16 04:32 | Emergency (ER) | payer BC, OTHER ==
[2022-06-16] MEDS ORDERED: Ondansetron 4 MG Tab.DIS PO ONE (04:33)
[2022-06-16 04:50] VITALS: BP 153/93; PULSE 98
[2022-06-16] MEDS ORDERED: Ondansetron 4 MG/2 ML SDV IVPUSH ONE (04:55)
[2022-06-16] MEDS ORDERED: Sodium Chloride 0.9% 1,000 ML IV ONE ×2 (04:55→05:39)
[2022-06-16] MEDS ORDERED: Ketorolac 30 MG/ML SDV IVPUSH ONE (04:56)
[2022-06-16 06:18] LABS: CORONAVIRUS COVID-19 NAA NEGATIVE (NEGATIVE)
[2022-06-16] MEDS ORDERED: Ondansetron 4 MG Tab.DIS ONE (06:36)
== END 2022-06-16 06:46 | disposition home or self-care (01) ==
LOC: DL.ED 04:32
DX: G43.919 Migraine, unspecified, intractable, without status migrainosus (principal); K52.9 Noninfective gastroenteritis and colitis, unspecified; Z88.0 Allergy status to penicillin; Z88.1 Allergy status to other antibiotic agents; Z88.8 Allergy status to other drugs, medicaments and biological substances; Z88.2 Allergy status to sulfonamides; Z86.16 Personal history of COVID-19; Z20.822 Contact with and (suspected) exposure to COVID-19
CPT/HCPCS: 0240U; 96361; 96374; 96375; 99284; A9270; J1885; J2405; J7030